=== PATIENT | female | born 1960 | race Caucasian/White ===

== ENCOUNTER 2022-11-02 08:13 | Emergency (ER) | payer OTHER, SELFPAY ==
--- NOTE | ~2022-11-02 | CT_ITS ---
EXAMINATION: CT ABDOMEN AND PELVIS WITHOUT CONTRAST CLINICAL INFORMATION: Right flank pain COMPARISON: None available. TECHNIQUE: Multidetector volumetric imaging was performed from the superior aspect of the liver through the pubic symphysis. Sagittal and coronal reformatted images were obtained on the technologist's workstation. This CT examination was performed using dose optimization techniques as appropriate, variously including the following: *Automated exposure control *Adjustment of mA and/or kV according to patient size (this includes techniques or standardized protocols for targeted exams where dose is matched to indication/reason for exam; i.e. extremities or head) *Use of iterative reconstruction technique DLP: 612 mGy-cm FINDINGS: LUNG BASES: There is plate-like atelectasis, left lung base. The right lung base is clear. The heart size is enlarged. There is a left diaphragmatic calcification. LIVER, GALLBLADDER, AND BILIARY TREE: The liver is normal in size, shape, and diffusely hypoattenuated. No focal hepatic lesion or biliary ductal dilatation is present. The gallbladder is unremarkable with no evidence of radiopaque gallstones, gallbladder wall thickening, or obvious pericholecystic inflammatory changes. PANCREAS: Unremarkable. SPLEEN: Unremarkable. ADRENAL GLANDS: Unremarkable. KIDNEYS AND URETERS: The kidneys are normal in size, shape, and attenuation. There is a 6 mm radiopaque calculi, mid pole right kidney, approximately 9 cm from posterior skin line. No additional renal calculi are seen. There is obstructive right hydronephrosis from a right distal ureter 5 mm radiopaque calculi. There is no left-sided hydronephrosis. BLADDER: The bladder is undistended with no bladder wall thickening. GASTROINTESTINAL TRACT: There is scattered stool, diverticuli and gas seen throughout the colon without any significant distention. The small bowel loops are normal caliber. The appendix is normal caliber. No free air or inflammatory process seen. ABDOMINAL WALL: There is a small umbilical hernia containing fat. LYMPH NODES: Normal. VASCULAR: Unremarkable. PELVIC VISCERA: The uterus is anteverted and appears unremarkable. No free fluid. No adnexal mass seen. No abnormal pelvic lymph nodes. OSSEOUS STRUCTURES: No aggressive lytic or sclerotic process seen. Moderate bilateral L4-L5 and L5-S1 facet joint arthropathy is noted. CT/CT abdomen pelvis wo IV con IMPRESSION: 1. There is 5 mm radiopaque obstructive calculi, right distal ureter, with mild hydroureteronephrosis. 2. Nonobstructive 6 mm radiopaque calculi, mid pole right kidney. 3. Mild constipation. Colonic diverticulosis without diverticulitis. Mild hepatic steatosis 4. Moderate bilateral L4-L5 and L5-S1 facet joint arthropathy. Fleischner guidelines were followed.
[2022-11-02 08:16] VITALS: BP 146/60; PULSE 56; RESP 18; TEMP 37.2; O2SAT 100; BMI 30.9
--- NOTE | 2022-11-02 08:42 | ED_ITS ---
HPI - Abdominal Pain General Chief Complaint: Abdominal Pain Stated Complaint: back pain Time Seen by Provider: 11/02/22 08:23 Source: patient and RN notes reviewed Mode of arrival: ambulatory Limitations: no limitations History of Present Illness HPI narrative: This is a [id number], with a past medical history of asthma, who presents to the emergency department with a complaint of right sided flank pain since 5:00AM this morning. Patient states that she developed right sided flank pain that radiates into the right side of her abdomen. She states that she has had urinary frequency. She admits to having nausea and 2 episodes of vomiting. She denies history of similar symptoms in the past. Denies history of kidney stones in the past. She admits that over last couple a days she has had some urinary frequency and bright colored urine, denies any dysuria or hematuria. Denies any fevers, chills, chest pain, diarrhea or constipation shortness of breath. History of tubal ligation, no other abdominal surgeries. No other complaints or concerns at this time. MD elicited complaint: abdominal pain and flank pain Pertinent past history: none Onset (ago): hour(s) Pain Consistency: constant Location: R flank Severity: moderate Quality: stabbing and aching Radiation: none Exacerbating factors: nothing Relieving factors: nothing Associated symptoms: nausea and vomiting Related Data Previous Rx's Medication Instructions Recorded ketorolac 10 mg tablet 10 mg PO Q6H PRN pain 5 days #14 11/02/22 tabs prednisone 20 mg tablet 20 mg PO DAILY #3 tabs 11/02/22 tamsulosin 0.4 mg capsule (Flomax) 0.4 mg PO DAILY #10 caps 11/02/22 Allergies Allergy/AdvReac Type Severity Reaction Status Date / Time No Known Allergies Allergy Verified 11/02/22 08:20 Review of Systems Review of Systems Constitutional: No Weight loss, No Fever, No Chills, No Night Sweats, No Fat igue, No Malaise ENT/Mouth: No Hearing loss, No Ear Pain, No Nasal Congestion, No Sinus Pain, No Hoarseness, No sore throat, No Rhinorrhea, No Swallowing Difficulty Eyes: No Eye Pain, No Swelling, No Redness, No Foreign Body, No Discharge, No Vision Changes Cardiovascular: No Chest Pain, No SOB, No Dyspnea on Exertion, No Orthopnea, No Edema, No Palpitations Respiratory: No Cough, No Sputum, No Wheezing, No Smoke Exposure, No Dyspnea Gastrointestinal:+ Nausea, + Vomiting, No Diarrhea, No Constipation, + Abdominal pain, No Hematochezia, No Melena Genitourinary: No irregular bleeding, No Dysuria, No Urinary Frequency, No Hematuria, No Urinary Incontinence/retention, No Urgency, No Flank Pain, No Urinary Flow Changes, No Hesitancy Musculoskeletal: No joint pain, No Myalgias, No Joint Swelling Skin: No Skin Lesions, No rash Neuro: No Weakness, No Numbness, No Paresthesias, No Loss of Consciousness, No Dizziness, No Headache Psych: No Anxiety/Panic, No Depression, No SI/HI/AH/VH, No Social Issues, Heme/Lymph: No Bruising, No Bleeding,No Lymphadenopathy Endocrine: No Polyuria, No Polydipsia, No Temperature Intolerance Yes all other systems are reviewed and are negative Constitutional: Reports as per [facility] Social History Social History Alcohol intake: current Alcohol intake frequency: a few times a month Alcohol type: wine Smoked in Last 30 Days: No Use of substances other than those prescribed or required for medical reasons: No Advance Directives: No Advance Directives Information Provided: Yes Patient : No Physical Exam ED Vital Signs: Vital Signs - 24 hr 11/02/22 14:58 Temperature 97.6 F Pulse Rate 62 Respiratory Rate 18 Blood Pressure 139/70 Pulse Oximetry 97 Oxygen Delivery Method Room Air BMI result Body Mass Index 30.9 Const General: cooperative, comfortable and no acute distress Orientation/consciousness: patient oriented x3 Limitations: no limitations [facility] Head: Yes normal to inspection, Yes normocephalic and Yes atraumatic Ears: hearing grossly normal bilaterally General nose exam: Normal external nose present Face and sinus: Yes normal facial exam Mouth: Normal oral and palatal mucosa present, oropharynx normal and moist mucous membranes Throat: Yes posterior oropharynx normal Eyes General: appearance normal, both eyes and all related structures Eyelids: Yes eyelids normal Conjunctivae: conjunctivae normal Sclerae: sclerae normal Pupils: Equal, round and reactive pupils present EOM: EOMs intact bilaterally Neck Neck: Yes normal visual inspection, Yes full ROM and Yes no lymphadenopathy Lymphatic: no lymphadenopathy noted Chest Chest palpation & inspection: normal inspection of the chest Resp Effort & Inspection: normal respiratory effort and able to speak in complete sentences Auscultation: clear to auscultation bilaterally, no crackles, no rales, no rhonchi and no wheezes Cardio Rate: regular rate Rhythm: regular rhythm Heart sounds: S1 normal heart sound present and S2 normal heart sound present GI Other: Abdomen is soft, nondistended, normoactive bowel sounds present in all 4 quadrants. No CVA tenderness Inspection: Yes normal to inspection Skin General skin exam: no rashes or lesions noted Trauma: no lacerations or abrasions Wounds: no wounds Neuro General: patient oriented x3 and moves all extremities Cranial nerves: Yes Equal, round and reactive pupils present Extrem General: Yes normal to inspection Right upper extremity: normal to inspection Left upper extremity: normal to inspection Right lower extremity: normal to inspection Left lower extremity: normal to inspection Course Reevaluation(s) Reevaluation #1: Patient feeling much better, reports that her pain improved even prior to going to CT scan and administration medications. Patient currently resting comfortably stretcher, currently receiving fluids, Toradol, Zofran. She is asking if she is okay to go home, I advised her that we were still waiting for her CT results. No current concerns or questions at this time. Time: 09:45 Reevaluation #2: Patient re-evaluated, patient's pain has improved with no return of severe pain that she experienced this morning. CT abdomen returns with findings of a 5 mm radiopaque obstructive calculi, right distal ureter, with mild hydroureternephrosis. Nonobstructed 6 mm radiopaque calculi in the mid pole of the right kidney. Discussed results with on-call urologist, Dr. Brody, who suggest if patient is able to tolerate p.o. that patient can be discharged on a 3 day course of prednisone 20 mg p.o. and tamsulosin 0.4 mg for 7-10 days. P.o. challenge initiated. Time: 13:02 Reevaluation #3: Patient able to tolerate p.o. and pain is well managed. Given prescription for prednisone, Flomax, and Toradol. Advised follow-up with urologist. Also educated patient on using strainer to see if kidney stone has passed. Discussed with patient when to return. Patient understands and agrees with plan. Patient stable for discharge Medical Decision Making Medical Decision Making MDM Narrative: 62-year-old female, with a past medical history of asthma, who presents emerge ncy department with complaints of sudden right-sided flank pain since this morning Reports associated nausea and vomiting. List having urinary frequency over the last few days, dysuria or hematuria. No history of kidney stones in the past. On examination vitals are all nontender, no CVA tenderness. Vitals signs stable. No fevers or chills. Hx of tubal ligation, no other abdominal surgeries in the past. Plan: Labs, UA, CT abdomen and pelvis. 1L IV fluids, Zofran and toradol ordered. Differential Diagnosis Differential Diagnoses: The differential diagnosis associated with the presentation includes Nephrolithiasis, cystitis, urinary tract infection, hydronephrosis, gastritis, Admission/Observation Consideration of admission/observation: Escalation of care including admission/observation considered Lab Data [facility] Lab Attestation statement: I reviewed the patient's lab results. 11/02/22 08:55 11/02/22 08:55 Labs: Lab Results 11/02/22 11/02/22 11/02/22 Range/Units 08:55 08:55 08:55 WBC 7.0 (4.8-10.8) X10*3/uL RBC 3.91 L (4.20-5.50) X10*6/uL Hgb 12.1 (12.0-16.0) g/dl Hct 36.9 L (37.0-47.0) % MCV 94.4 (80.0-98.0) fL MCH 30.9 (27.0-33.0) pg MCHC 32.8 (31.0-35.0) g/dl RDW 13.4 (11.0-16.0) % Plt Count 344 (160-400) X10*3/uL MPV 8.7 L (9.4-12.3) fL Immature Gran % (Auto) 0.4 (0.0-0.4) % Neut % (Auto) 65.2 (45-73) % Lymph % (Auto) 24.5 (20-40) % Sac % (Auto) 6.6 (2-11) % Eos % (Auto) 2.7 (0-4) % Baso % (Auto) 0.6 (0-2) % Lymph # (Auto) 1.7 (1.2-4.9) X10*3/uL Sac # (Auto) 0.5 (0.1-1.2) X10*3/uL Eos # (Auto) 0.2 (0.0-0.4) X10*3/uL Baso # (Auto) 0.0 (0.0-0.2) X10*3/uL Abs Immat Gran (auto) 0.03 (0.00-0.03) X10*3/uL Absolute Neuts (auto) 4.6 (2.0-8.3) x10*3/uL Absolute Nucleated RBC 0.000 (0.0-0.012) X10*3/uL Nucleated RBC % (auto) 0.0 (0.0-0.2) /100WBC Sodium 142 (135-145) mmol/L Potassium 4.5 (3.3-5.1) mmol/L Chloride 110 H (96-108) mmol/L Carbon Dioxide 23 (22-29) mmol/L Anion Gap 14 (12-20) BUN 25 H (9-16) mg/dL Creatinine 0.97 (0.5-1.4) mg/dL Estim Creat Clear Calc 62.1 Estimated GFR 58 Random Glucose 146 H (60-115) mg/dL Calcium 9.2 (8.4-10.2) mg/dL Magnesium 2.0 (1.6-2.6) mg/dL Total Bilirubin 0.4 (0.0-1.0) mg/dL Direct Bilirubin 0.1 (0.0-0.5) mg/dL AST 28 (5-31) U/L ALT 52 H (0-31) U/L Alkaline Phosphatase 81 (39-117) U/L Total Protein 7.0 (6.5-8.0) g/dL Albumin 4.2 (3.5-5.0) g/dL Lipase 37 (8-78) U/L Urine Color Yellow Urine Appearance Cloudy Urine pH 5.5 (5.0-9.0) Ur Specific [place] >= 1.030 H (1.005-1.025) Urine Protein Trace (Neg-Trace) mg/dL Urine Glucose (UA) Negative (Negative) mg/dL Urine Ketones Negative (Negative) mg/dL Urine Blood Trace H (Negative) Urine Nitrite Negative (Negative) Ur Leukocyte Esterase Large (3+) H (Negative) Urine RBC 3-5 H (0-2) /HPF Urine WBC >50 H (0-5) /HPF Ur Squamous Epith Cells 11-20 (0-2) /HPF Urine Bacteria Trace (None Seen) Hyaline Casts 0-2 (0-2) /LPF Radiology Impression Discussion of test interpretation with radiology: I have reviewed the radiologist's reading. External Record Review External record reviewed: Inpatient record, Office record, Outpatient record, Prior outpatient labs, Prior outpatient radiology, Primary care record and Outside ED record Medications Administered Discontinued Medications Generic Name Dose Route Start Last Admin Trade Name Freq PRN Reason Stop Dose Admin Sodium Chloride 1,000 mls @ 999 mls/hr 11/02/22 08:37 11/02/22 10:30 Ns IV 11/02/22 09:37 Infused .Q1H1M ONE Infusion Ketorolac Tromethamine 30 mg 11/02/22 08:36 11/02/22 09:15 Ketorolac Tromethamine 30 Mg/Ml Vial IVPUSH 11/02/22 08:37 30 mg ONCE ONE Administration Ondansetron HCl 4 mg 11/02/22 08:36 11/02/22 09:16 Ondansetron Hcl 4 Mg/2 Ml Vial IVPUSH 11/02/22 08:37 4 mg ONCE ONE Administration Discharge Plan Discharge Clinical Impression: Kidney calculi Patient Disposition: Home, Self-Care Instructions: Kidney Stones (ED) Additional Instructions: Please take prescribed medications as directed. Your CT scan revealed a 5 mm radiopaque obstructive calculi, and a nonobstructed 6 mm radiopaque calculi. This was discussed with our on-call urologist who suggested oral medications to help facilitate passing this stone. Please stay well hydrated and get plenty of rest. You may use the urine strainer to ensure that you have passed a kidney stone. Please watch for any new or worsening symptoms occluding the not limited to fevers, chills, worsening right flank pain, or you are unable to tolerate any food or beverage by mouth. Please follow-up with a urologist, I have attached Dr. Brody's information to this discharge. Follow-up with your primary care physician. Prescriptions: New prednisone 20 mg tablet 20 mg PO DAILY Qty: 3 0RF tamsulosin [Flomax] 0.4 mg capsule 0.4 mg PO DAILY Qty: 10 0RF ketorolac 10 mg tablet 10 mg PO Q6H PRN (Reason: pain) 5 Days Qty: 14 0RF Rx Instructions: pt received first dose of toradol IM in department. Referrals: Donte Brody MD [Physician] - Interventions: ED Discharge Assessment Last Done: 11/02/22 14:59 Discharge Date/Time: 11/02/22 15:00
[2022-11-02 08:59] LABS: MANUAL DIFF FLAG NO
[2022-11-02 09:01] LABS: Appearance Urine Cloudy; Basophils Percent Auto 0.6 % (0-2); Color Urine Yellow; Eosinophils Absolute Auto 0.2 X10*3/uL (0.0-0.4); Eosinophils Percent Auto 2.7 % (0-4); Glucose Urine UA Negative (Negative); Hematocrit 36.9 % (37.0-47.0); Hemoglobin 12.1 g/dl (12.0-16.0); Imm Gran Abs Auto 0.03 X10*3/uL (0.00-0.03); Imm Gran Pct Auto 0.4 % (0.0-0.4); Leukocyte Esterase Urine Large (3+) (Negative); Lymphocytes Absolute Auto 1.7 X10*3/uL (1.2-4.9); Lymphocytes Percent Auto 24.5 % (20-40); Mean Corpuscular HGB Conc 32.8 g/dl (31.0-35.0); Mean Corpuscular Hemoglobin 30.9 pg (27.0-33.0); Mean Corpuscular Volume 94.4 fL (80.0-98.0); Mean Platelet Volume 8.7 fL (9.4-12.3); Monocytes Absolute Auto 0.5 X10*3/uL (0.1-1.2); Monocytes Percent Auto 6.6 % (2-11); Neutrophils Absolute Auto 4.6 x10*3/uL (2.0-8.3); Neutrophils Percent Auto 65.2 % (45-73); Nitrite Urine Negative (Negative); PH 5.5 (5.0-9.0); Platelet Count 344 X10*3/uL (160-400); Red Blood Count 3.91 X10*6/uL (4.20-5.50); Red Cell Distribution Width 13.4 % (11.0-16.0); Specific Gravity - Urine >= 1.030 (1.005-1.025); UMIC TRIGGER UACC YES; Urine Blood Trace (Negative); Urine Ketones Negative (Negative); Urine Protein Trace mg/dL (Neg-Trace)
[2022-11-02 09:08] LABS: Bacteria Urine Trace (None Seen); Hyaline Casts Urine 0-2 /LPF (0-2); UACC Culture Trigger YES; WBC Urine >50 /HPF (0-5)
--- NOTE | 2022-11-02 09:10 | PC.NURSE ---
Patient complaining of abdominal pain that has gotten progressively worse for the past few hours. Pain started to get better approximately 15 minutes ago but is still a 5/10. IV obtained, fluids started and patient medicated per AUG.
[2022-11-02] MEDS: 0.9 % Sodium Chloride 1,000 ML 999 ML IV (09:14)
[2022-11-02] MEDS: Ketorolac Tromethamine 30 MG/ML VIAL IVPUSH (09:15)
[2022-11-02] MEDS: ondansetron HCL 4 MG/2 ML VIAL IVPUSH (09:16)
[2022-11-02 09:19] LABS: Alanine Aminotransferase 52 U/L (0-31); Albumin Level 4.2 g/dL (3.5-5.0); Alkaline Phosphatase 81 U/L (39-117); Anion Gap 14 (12-20); Aspartate Amino Transferase 28 U/L (5-31); Bilirubin Direct 0.1 mg/dL (0.0-0.5); Bilirubin Total 0.4 mg/dL (0.0-1.0); Blood Urea Nitrogen 25 mg/dL (9-16); Calcium 9.2 mg/dL (8.4-10.2); Carbon Dioxide 23 mmol/L (22-29); Chloride 110 mmol/L (96-108); Creatinine Clr Calc Pharmacy 62.1; Estimated Glomerular Filt Rate 58; Glucose Random 146 mg/dL (60-115); Lipase 37 U/L (8-78); Potassium 4.5 mmol/L (3.3-5.1); Sodium 142 mmol/L (135-145)
--- NOTE | 2022-11-02 10:54 | PC.NURSE ---
Patient states that while she was laying back her pain started to get bad again, patient states that she used the bathroom but the pain persisted. Afterwards patient states that the pain relieved on its own.
[2022-11-02 14:58] VITALS: BP 139/70; PULSE 62; RESP 18; TEMP 36.4; O2SAT 97
== END 2022-11-02 15:00 | disposition home or self-care (01) ==
PROVIDERS: Physician Assistant Medical; Emergency Provider Emergency Medicine; PCP Internal Medicine
DX: N13.2 Hydronephrosis with renal and ureteral calculous obstruction (principal); R10.9 Unspecified abdominal pain
CPT/HCPCS: 36415; 74176; 80048; 80076; 81001; 81003; 83690; 83735; 85025; 87086; 96361; 96374; 96375; 99284; J1885; J2405